=== PATIENT | female | born 1995 ===

== ENCOUNTER 2017-11-17 13:55 | Emergency (ER) | payer SELFPAY ==
[2017-11-17 14:42] VITALS: BP 114/59
--- NOTE | 2017-11-17 15:25 | UC ---
Respiratory Complaint HPI - HPI Summary HPI Summary: Pt presents with c/o fever cough, wheezing, chest congestion and fatigue X 4 days. Pt has history of asthma. Has Albuterol inhaler and states it is not helping. - History of Current Complaint Chief Complaint: UCRespiratory Stated Complaint: CHEST NIKKI,COUGH Time Seen by Provider: 11/17/17 15:13 Hx Obtained From: Patient Hx Last Menstrual Period: 10/22/18 ?: No Onset/Duration: Sudden Onset, Lasting Days, Worse Since - onset Severity Initially: Mild Severity Currently: Mild Character: Cough: Productive, Sputum Description: - yellow Aggravating Factors: Exertion, Deep Breaths, Recumbent Position Alleviating Factors: Nothing Associated Signs And Symptoms: Positive: Fever - Risk Factors Pulmonary Embolism Risk Factors: Negative Cardiac Risk Factors: Negative Pseudomonas Risk Factors: Negative Tuberculosis Risk Factors: Negative - Allergies/Home Medications Allergies/Adverse Reactions: Allergies Allergy/AdvReac Type Severity Reaction Status Date / Time No Known Allergies Allergy Verified 11/17/17 14:42 PMH/Surg Hx/FS Hx/Imm Hx Previously Healthy: Yes - Surgical History Surgical History: None - Family History Known Family History: Positive: Cardiac Disease - Social History Occupation: Student Lives: Dormitory/Roommates Alcohol Use: Rare Substance Use Type: None Smoking Status (MU): Never Smoked Tobacco Have You Smoked in the Last Year: No Review of Systems Constitutional: Fever, Fatigue Skin: Negative Eyes: Negative ENT: Negative Respiratory: Shortness Of Breath, Cough Cardiovascular: Negative Gastrointestinal: Negative Genitourinary: Negative Motor: Negative Neurovascular: Negative Musculoskeletal: Negative Neurological: Negative Psychological: Negative Is Patient Immunocompromised?: No All Other Systems Reviewed And Are Negative: Yes Physical Exam Triage Information Reviewed: Yes Appearance: Well-Appearing Vital Signs: Initial Vital Signs Temp 98.0 F 11/17/17 14:38 Pulse 80 11/17/17 14:38 Resp 14 11/17/17 14:38 BP 114/59 11/17/17 14:38 Vital Signs Reviewed: Yes Eye Exam: Normal ENT Exam: Normal Neck exam: Normal Respiratory Exam: Normal Cardiovascular Exam: Normal Musculoskeletal Exam: Normal Neurological Exam: Normal Psychological Exam: Normal Skin Exam: Normal Respiratory Course/Dx - Differential Dx/Diagnosis Differential Diagnosis/HQI/PQRI: Bronchitis, Influenza Provider Diagnoses: Bronchitis Discharge - Discharge Plan Condition: Stable Disposition: HOME Prescriptions: Azithromycin TAB* [Zithromax TAB (Z-OLMAN) 250 mg #6 tabs] 2 tab PO .TODAY, THEN 1 DAILY #1 olman Benzonatate CAP* [Tessalon 100 MG CAP*] 100 mg PO Q8H PRN #21 cap PRN Reason: Cough predniSONE TAB* [Deltasone TAB*] 20 mg PO DAILY #4 tab Patient Education Materials: Acute Bronchitis (ED) Referrals: Non Staff,Doctor [Primary Care Provider] - If Needed
== END 2017-11-17 15:32 | disposition home or self-care (01) ==
LOC: UCCORT 13:55
DX: J45.909 Unspecified asthma, uncomplicated (principal)
CPT/HCPCS: 99202; G0463